=== PATIENT | male | born 1990 | race Caucasian/White ===

== ENCOUNTER 2021-07-26 07:30 | Outpatient (CLI) | payer SELFPAY ==
--- NOTE | 2021-07-26 07:41 | CT_ITS ---
STUDY: CT MAXILLOFACIAL SINUSES REASON FOR EXAM: Male, 31 years old. Sinusitis RADIATION DOSAGE (If Supplied By Facility): CTDIvol = ( 33.06 ) mGy, DLP = ( 829.72 ) mGycm TECHNIQUE: The patient was scanned in a multi detector CT scanner. High resolution axial imaging was performed without the administration of intravenous contrast material. Sagittal and coronal images were reconstructed. Individualized dose optimization techniques were used for this CT. COMPARISON: None. FINDINGS: FRONTAL SINUSES: Normal aeration, without mucosal inflammatory disease. ETHMOIDAL SINUSES: Normal aeration, without mucosal inflammatory disease. MAXILLARY SINUSES: Partial opacification of the right maxillary sinus with an air-fluid level. There is a 1.6 cm x 1.5 cm mucosal polyp or retention cyst at the base of the left maxillary sinus. SPHENOIDAL SINUSES: Normal aeration, without mucosal inflammatory disease. There is patency of the bilateral maxillary infundibuli with normal uncinate processes, ethmoid bullae, and hiatus semilunaris. Normal bilateral middle turbinates. There is hypertrophy of the left inferior nasal turbinate. There is a left sided nasal septal deviation, but without a nasal septal spur. There is patency of the bilateral nasal airways. The visualized osseous structures are normal. The visualized bilateral orbital contents are normal. Incidental note is made of small benign-appearing submental lymph nodes. CT/Sinus/Facial Bone IMPRESSION: Partial obscuration of the right maxillary sinus. Mucosal system retention cyst at the base of the left maxillary sinus. Electronically Signed: Pato Wilson MD at 9:16 EST ,
== END 2021-07-26 23:59 | disposition short-term general hospital (02) ==
LOC: CT 07:37
PROVIDERS: PCP Student in an Organized Health Care Education/Training Program; Referring Provider Otolaryngology; Visit Provider Otolaryngology
DX: J32.8 Other chronic sinusitis (principal)
CPT/HCPCS: 70486

== ENCOUNTER 2023-04-22 17:06 | Emergency (ER) | payer OTHER, SELFPAY ==
[2023-04-22 17:08] VITALS: BP 134/89; PULSE 70; RESP 18; TEMP 36.3; O2SAT 100; BMI 35.6
--- NOTE | 2023-04-22 17:20 | EX.ED.GENINJ ---
HPI History of Present Illness Chief Complaint: Laceration Detail of Chief Complaint: Right knee laceration Informant: patient Onset/Context/Timing Onset: Today Narrative Narrative: Patient presents secondary to right knee laceration. He was at work when a piece of metal caught him across the right knee. He put a dressing on it but has continued to bleed through the dressing. He is not on blood thinners. Has been ambulatory on his leg without difficulty. He reports his last tetanus shot was 1 or 2 years ago. PFSH PFSH Medical History no medical history no medical history Allergy/AdvReac Type Severity Reaction Status Date / Time No Known Allergies Allergy Verified 04/22/23 17:07 Social History Smoking Status: Never smoker ROS ROS ED Constitutional Constitutional ED: Denies chills or fever(s) Eyes Eyes: Denies change in vision ENT ENT ED: Denies rhinorrhea or sore throat Cardiovascular Cardiovascular: Denies chest pain Respiratory/Chest Respiratory/Chest: Denies cough or dyspnea Gastrointestinal Gastrointestinal: Denies abdominal pain Musculoskeletal Musculoskeletal: Reports other Details: Right knee pain Integumentary Reports other Details: Right knee laceration Neurologic Neurologic: Denies headache(s) Psychiatric Psychiatric: Denies anxiety or depression EXAM Physical Exam Const Vital Signs: 04/22/23 17:08 Temperature 97.4 F L Temperature Source Temporal Pulse Rate 70 Respiratory Rate 18 Blood Pressure 134/89 H Blood Pressure Mean 104 Pulse Ox 100 Oxygen Delivery Method Room Air Positive well nourished and well developed General Appearance ED: well developed Eyes EOMs intact bilaterally Chest Wall inspection of chest normal Resp normal respiratory effort Cardio regular rhythm Rate: regular rate Extremity Extremity Narrative: 2 cm linear laceration over the anterior right knee. Bleeding well controlled at this time. Patella stable. Ligaments tight on testing. Strong distal pulses. Neuro oriented x3 and moves all extremities Skin Skin Narrative: Right knee laceration as noted above. MDM MDM MDM Narrative Medical decision making narrative: Patient's tetanus is already up-to-date. 2 cc of 1% lidocaine was infused locally around the wound. Wound is cleansed and irrigated. Skin is closed with 3 simple interrupted sutures of 4-0 nylon. Surgifoam placed over the wound and dressing applied. Wound care discussed. Given high tension area over the anterior knee patient will have sutures removed in 1 week. Return instructions given. Discharge Plan Triage Chief Complaint: Laceration ED Provider: Shanice Burrell Dx/Rx/DC Orders Clinical Impression: Knee laceration Instructions: ED Laceration Extremity Stand Alone Forms: Work Status Form Primary Care Provider: Juan Bernal Referrals: [facility] [Group of Physicians] - 7 Days for suture removal Juan Bernal DO [Primary Care Provider] - Disposition Disposition: Home, Self Care
[2023-04-22] MEDS: Lidocaine 1% (20 ml mdv) 20 ML Vial INFILT (17:34)
== END 2023-04-22 18:05 | disposition home or self-care (01) ==
PROVIDERS: Emergency Provider Emergency Medicine; PCP Student in an Organized Health Care Education/Training Program; Visit Provider Emergency Medicine
DX: S81.011A Laceration without foreign body, right knee, initial encounter (principal); Y99.0 Civilian activity done for income or pay; W26.8XXA Contact with other sharp object(s), not elsewhere classified, initial encounter; Y92.69 Other specified industrial and construction area as the place of occurrence of the external cause
CPT/HCPCS: 12001; 99283